=== PATIENT | male | born 1950 | race Caucasian/White ===

== ENCOUNTER 2021-05-26 22:13 | Observation (INO) | payer BC, MEDICARE, OTHER ==
[~2021-05-26] VITALS: Ht 177.8 cm; Wt 98.0 kg
[2021-05-26] MEDS ORDERED: ISOVUE-370 76% 100ML VIAL As Ordered ONE (22:18)
[2021-05-26 22:39] LABS: BASO % 0.4 % (0.0-1.0); EOS # 0.1 10^3/uL (0.0-0.5); EOS % 1.4 % (0.0-3.0); HEMATOCRIT 33.2 % (42.0-52.0); HEMOGLOBIN 10.5 g/dl (13.5-17.5); LYMPH # 1.5 10^3/uL (1.5-5.0); LYMPH % 14.6 % (24.0-44.0); MEAN CORPUSCULAR HEMOGLOBIN 29.8 pg (27.0-33.0); MEAN CORPUSCULAR HGB CONC 31.6 g/dl (32.0-36.5); MEAN CORPUSCULAR VOLUME 94.3 fl (80.0-96.0); NEUTROPHILS # 7.5 10^3/uL (1.5-8.5); PLATELET COUNT, AUTOMATED 195 10^3/uL (150-450); RED BLOOD COUNT 3.52 10^6/uL (4.30-6.10); WHITE BLOOD COUNT 10.2 10^3/uL (4.0-10.0)
[2021-05-26 22:51] LABS: INR 3.96; PROTHROMBIN TIME 38.9 SECONDS (12.7-14.5)
[2021-05-26 22:52] LABS: PARTIAL THROMBOPLASTIN TIME 38.2 SECONDS (25.9-37.0)
[2021-05-26 23:13] LABS: CK-MB VALUE MASS 2.3 NG/ML (<3.6); MB/CK RELATIVE INDEX 1.68 (< OR =4)
[2021-05-26 23:14] LABS: ALBUMIN 3.6 GM/DL (3.2-5.2); ALT/SGPT 56 U/L (12-78); BILIRUBIN,DIRECT < 0.1 MG/DL (0.0-0.2); BILIRUBIN,TOTAL 0.2 MG/DL (0.2-1.0); ETHYL ALCOHOL (ETHANOL) 0.003 % (0.000-0.010); LIPASE 114 U/L (73-393); TOTAL PROTEIN 6.6 GM/DL (6.4-8.2)
[2021-05-27] MEDS ORDERED: METO1TAB33 PO (01:35)
[2021-05-27] MEDS ORDERED: RAMI1CAP26 PO (01:35)
[2021-05-27] MEDS ORDERED: METF-838 PO (01:35)
[2021-05-27] MEDS ORDERED: AMLO1TAB25 PO (01:35)
[2021-05-27] MEDS ORDERED: PRAV10TA4 PO (01:35)
[2021-05-27] MEDS ORDERED: TERA10CA3 PO (01:35)
[2021-05-27] MEDS ORDERED: WARF-23 PO ×2 (01:35)
[2021-05-27] MEDS ORDERED: HOME MED LIST COMPLETE! XX SCH (01:40)
[2021-05-27 02:17] LABS: CK-MB VALUE MASS 2.3 NG/ML (<3.6)
[2021-05-27] MEDS ORDERED: MOM 30ML SUSPENSION UDC PO PRN (07:30)
[2021-05-27] MEDS ORDERED: ACETAMINOPHEN TAB 650MG DOSE (2X325MG) PO PRN (07:30)
[2021-05-27] MEDS ORDERED: TERAZOSIN 5MG CAPSULE PO SCH (09:00)
[2021-05-27] MEDS ORDERED: METOPROLOL SUCC (TopROL XL) 100MG *XL* TAB PO SCH (09:00)
[2021-05-27] MEDS: TAMSULOSIN 0.4 MG CAP PO SCH ×2 (09:00→20:47)
[2021-05-27 09:19] LABS: INR 3.57; PROTHROMBIN TIME 35.9 SECONDS (12.7-14.5)
[2021-05-27] MEDS: ramipriL 5 MG CAP PO SCH (09:39)
[2021-05-27] MEDS: PRAVASTATIN 10 MG TAB PO SCH (09:40)
[2021-05-27 11:10] VITALS: BP 137/54
[2021-05-27] MEDS ORDERED: GLUCAGON INJ 1MG VIAL SC PRN (11:50)
[2021-05-27] MEDS ORDERED: GLUCOSE 4GM CHEW TABLET PO PRN (11:50)
[2021-05-27] MEDS ORDERED: DEXTROSE 50% 50 ML SYRINGE IV PRN (11:50)
[2021-05-27] MEDS: HumaLOG INSULIN (NovoLOG) PER UNIT SC SCH ×3 (12:18→20:52)
[2021-05-27 14:00] VITALS: BP 136/57
[2021-05-27 15:33] VITALS: BP 156/65
[2021-05-27] MEDS: WARFARIN SOD 5MG TAB PO SCH (18:20)
[2021-05-27 20:16] VITALS: BP 133/66
[2021-05-27 21:00] VITALS: BP 144/71
[2021-05-28 00:12] VITALS: BP 145/67
[2021-05-28 04:30] VITALS: BP 133/63
[2021-05-28 05:41] LABS: HEMATOCRIT 33.4 % (42.0-52.0); HEMOGLOBIN 10.7 g/dl (13.5-17.5); MEAN CORPUSCULAR HEMOGLOBIN 29.8 pg (27.0-33.0); PLATELET COUNT, AUTOMATED 194 10^3/uL (150-450); RED BLOOD COUNT 3.59 10^6/uL (4.30-6.10)
[2021-05-28 06:04] LABS: INR 3.24; PROTHROMBIN TIME 33.4 SECONDS (12.7-14.5)
[2021-05-28 06:05] LABS: ALBUMIN 3.1 GM/DL (3.2-5.2); ALT/SGPT 37 U/L (12-78); BILIRUBIN,TOTAL 0.3 MG/DL (0.2-1.0); BLOOD UREA NITROGEN 20 MG/DL (7-18); CALCIUM LEVEL 8.3 MG/DL (8.8-10.2); CARBON DIOXIDE LEVEL 26 MEQ/L (21-32); CHLORIDE LEVEL 112 MEQ/L (98-107); CREATININE FOR GFR 1.11 MG/DL (0.70-1.30); GLOMERULAR FILTRATION RATE > 60.0 (>49); GLUCOSE, FASTING 126 MG/DL (70-100); MAGNESIUM LEVEL 1.7 MG/DL (1.8-2.4); POTASSIUM SERUM 4.1 MEQ/L (3.5-5.1); SODIUM LEVEL 144 MEQ/L (136-145)
[2021-05-28 07:57] VITALS: BP 138/71
[2021-05-28] MEDS: TAMSULOSIN 0.4 MG CAP PO SCH ×2 (08:09→22:03)
[2021-05-28] MEDS: HumaLOG INSULIN (NovoLOG) PER UNIT SC SCH ×4 (08:09→21:00)
[2021-05-28] MEDS ORDERED: MAG SULF 1GM/100ML (MAG RUN) 1 GM in IV 1 EA IV ONE (08:25)
[2021-05-28] MEDS ORDERED: PREVNAR 13 VACCINE SYRINGE IM ONE (09:00)
[2021-05-28] MEDS: ramipriL 5 MG CAP PO SCH (09:33)
[2021-05-28] MEDS: PRAVASTATIN 10 MG TAB PO SCH (09:33)
[2021-05-28 12:02] VITALS: BP 136/68
[2021-05-28 15:57] VITALS: BP 136/66
[2021-05-28] MEDS: WARFARIN SOD 5MG TAB PO SCH (16:58)
[2021-05-28 21:53] VITALS: BP 157/75
[2021-05-29 00:38] VITALS: BP 147/73
[2021-05-29 04:14] VITALS: BP 144/67
[2021-05-29 06:55] LABS: HEMATOCRIT 36.2 % (42.0-52.0); HEMOGLOBIN 11.6 g/dl (13.5-17.5); MEAN CORPUSCULAR HEMOGLOBIN 29.4 pg (27.0-33.0); MEAN CORPUSCULAR VOLUME 91.9 fl (80.0-96.0); PLATELET COUNT, AUTOMATED 198 10^3/uL (150-450); RED BLOOD COUNT 3.94 10^6/uL (4.30-6.10); WHITE BLOOD COUNT 7.2 10^3/uL (4.0-10.0)
[2021-05-29 07:23] LABS: ALBUMIN 3.3 GM/DL (3.2-5.2); ALT/SGPT 34 U/L (12-78); BILIRUBIN,TOTAL 0.4 MG/DL (0.2-1.0); BLOOD UREA NITROGEN 17 MG/DL (7-18); CALCIUM LEVEL 8.7 MG/DL (8.8-10.2); CARBON DIOXIDE LEVEL 29 MEQ/L (21-32); CHLORIDE LEVEL 108 MEQ/L (98-107); CREATININE FOR GFR 1.03 MG/DL (0.70-1.30); GLOMERULAR FILTRATION RATE > 60.0 (>49); GLUCOSE, FASTING 130 MG/DL (70-100); INR 3.22; MAGNESIUM LEVEL 1.7 MG/DL (1.8-2.4); POTASSIUM SERUM 4.3 MEQ/L (3.5-5.1); PROTHROMBIN TIME 33.2 SECONDS (12.7-14.5); SODIUM LEVEL 142 MEQ/L (136-145); TOTAL PROTEIN 6.4 GM/DL (6.4-8.2)
[2021-05-29 07:30] VITALS: BP 148/68
[2021-05-29] MEDS ORDERED: MAGNESIUM OXIDE 400MG TAB (MAG-OX) PO ONE (07:55)
[2021-05-29] MEDS ORDERED: FLOM0.4C39 PO (08:01)
[2021-05-29] MEDS: HumaLOG INSULIN (NovoLOG) PER UNIT SC SCH ×2 (08:59→12:42)
[2021-05-29] MEDS: PRAVASTATIN 10 MG TAB PO SCH (08:59)
[2021-05-29] MEDS: TAMSULOSIN 0.4 MG CAP PO SCH (08:59)
[2021-05-29] MEDS: ramipriL 5 MG CAP PO SCH (08:59)
[2021-05-29 09:00] VITALS: BP 148/68
[2021-05-30] MEDS ORDERED: WARFARIN SOD 2.5MG TAB PO SCH (17:00)
== END 2021-05-29 15:06 | disposition home or self-care (01) ==
LOC: M ED 22:13 → M ED INP 22:14 → ENRESERV 05-27 09:50 → M MSPAV 05-27 11:14 → M PCU 05-27 15:24
PROVIDERS: ADMIT Internal Medicine; ATTEND Internal Medicine
DX: R55 Syncope and collapse (principal); R00.1 Bradycardia, unspecified; I44.1 Atrioventricular block, second degree; I11.9 Hypertensive heart disease without heart failure; I25.10 Atherosclerotic heart disease of native coronary artery without angina pectoris; Z95.2 Presence of prosthetic heart valve; N17.9 Acute kidney failure, unspecified; N40.1 Benign prostatic hyperplasia with lower urinary tract symptoms; S00.83XA Contusion of other part of head, initial encounter; X58.XXXA Exposure to other specified factors, initial encounter; Y92.098 Other place in other non-institutional residence as the place of occurrence of the external cause; E11.9 Type 2 diabetes mellitus without complications; E78.5 Hyperlipidemia, unspecified; M19.90 Unspecified osteoarthritis, unspecified site; R10.9 Unspecified abdominal pain; K56.41 Fecal impaction; Z79.899 Other long term (current) drug therapy; Z79.84 Long term (current) use of oral hypoglycemic drugs; Z79.01 Long term (current) use of anticoagulants; Z98.84 Bariatric surgery status; Y93.9 Activity, unspecified
CPT/HCPCS: 36415; 51702; 70450; 71275; 74174; 80047; 80053; 80076; 81001; 82077; 82550; 82553; 83690; 83735; 84484; 85025; 85027; 85610; 85730; 86850; 86900; 86901; 87798; 90670; 93005; 93041; 93306; 97161; 99285; G0009; J1815; J3475; Q9967

== ENCOUNTER 2022-12-10 11:37 | Inpatient (IN) | payer BC, MEDICARE ==
[2022-12-10] VITALS (7 sets, daily range): BP systolic 134–147; BP diastolic 60–63; TEMP 98–98.3; O2SAT 96–100
[~2022-12-10 11:37] MED LIST: AMLO1TAB25 PO; FLOM0.4C39 PO; METF-838 PO; METO1TAB33 PO; PRAV10TA4 PO; RAMI1CAP26 PO; TERA10CA3 PO; WARF-23 PO
[2022-12-10] MEDS ORDERED: MAALOX 30 ML SUSP *UDC PO PRN (13:05)
[2022-12-10] MEDS ORDERED: MOM 30ML SUSPENSION UDC PO PRN (13:05)
[2022-12-10] MEDS ORDERED: ACETAMINOPHEN TAB 650MG DOSE (2X325MG) PO PRN (13:05)
[2022-12-10 13:52] LABS: ABG BASE EXCESS -4.5 (-2.0-2.0); ABG HCO3 19.4 MMOL/L (22.0-26.0); ABG O2 SATURATION 96.3 % (95.0-99.0); ABG PARTIAL PRESSURE CO2 31.4 mmHg (35.0-45.0); ABG PARTIAL PRESSURE O2 87.6 mmHg (75.0-100.0); ABG STANDARD HCO3 20.7 MMOL/L. (22.0-26.0); ABG TOTAL CO2 20.3 MMOL/L (23.0-31.0); ABG pH (ARTERIAL) 7.408 UNITS (7.350-7.450)
[2022-12-10 14:29] LABS: HEMATOCRIT 33.1 % (42.0-52.0); HEMOGLOBIN 9.3 g/dl (13.5-17.5); MEAN CORPUSCULAR HEMOGLOBIN 25.1 pg (27.0-33.0); MEAN CORPUSCULAR HGB CONC 28.1 g/dl (32.0-36.5); MEAN CORPUSCULAR VOLUME 89.5 fl (80.0-96.0); PLATELET COUNT, AUTOMATED 439 10^3/uL (150-450); WHITE BLOOD COUNT 8.4 10^3/uL (4.0-10.0)
[2022-12-10 14:52] LABS: ALBUMIN 2.7 G/DL (3.2-5.2); BILIRUBIN,TOTAL 0.4 MG/DL (0.3-1.2); CALCIUM LEVEL 8.5 MG/DL (8.3-10.6); CREATININE FOR GFR 1.43 MG/DL (0.70-1.30); GLOMERULAR FILTRATION RATE 51.9 (>42); MAGNESIUM LEVEL 1.7 MG/DL (1.8-2.4); POTASSIUM SERUM 4.6 MMOL/L (3.5-5.1); TOTAL PROTEIN 6.7 G/DL (5.7-8.2)
[2022-12-10] MEDS ORDERED: FUROSEMIDE 40MG/4ML VIAL IV STA (14:54)
[2022-12-10] MEDS ORDERED: DEXTROSE 50% 50ML SYRINGE IV PRN (15:00)
[2022-12-10] MEDS ORDERED: GLUCOSE 4GM CHEW TABLET PO PRN (15:00)
[2022-12-10] MEDS ORDERED: GLUCAGON INJ 1MG VIAL SC PRN (15:00)
[2022-12-10] MEDS ORDERED: LIDOCAINE 1% MDV 20ML VIAL As Ordered ONE (15:36)
[2022-12-10] MEDS ORDERED: ISOVUE-370 76% 100ML VIAL As Ordered ONE (15:39)
[2022-12-10] MEDS ORDERED: MAG SULF 1GM/100ML (MAG RUN) 1 GM in IV 1 EA IV ONE (16:00)
[2022-12-10] MEDS: INSULIN LISPRO (NovoLOG) PER UNIT SC SCH (17:30)
[2022-12-10] MEDS ORDERED: SODIUM CHLORIDE 0.9% INJ 10 ML SYR IV SCH (17:50)
[2022-12-10] MEDS ORDERED: SODIUM CHLORIDE 0.9% INJ 10 ML SYR IV PRN (17:50)
[2022-12-10 18:37] LABS: INR 2.42; PROTHROMBIN TIME 25.7 SECONDS (12.5-14.5)
[2022-12-10 18:38] LABS: PARTIAL THROMBOPLASTIN TIME 36.8 SECONDS (24.8-34.2)
[2022-12-10] MEDS ORDERED: WARFARIN SOD 5MG TAB PO SCH (20:00)
[2022-12-10] MEDS: FUROSEMIDE 40MG/4ML VIAL IV SCH (20:17)
[2022-12-10] MEDS ORDERED: INSULIN LISPRO (NovoLOG) PER UNIT SC SCH (21:00)
[2022-12-11 04:38] LABS: HEMATOCRIT 29.2 % (42.0-52.0); HEMOGLOBIN 8.3 g/dl (13.5-17.5); MEAN CORPUSCULAR HEMOGLOBIN 25.3 pg (27.0-33.0); MEAN CORPUSCULAR HGB CONC 28.4 g/dl (32.0-36.5); PLATELET COUNT, AUTOMATED 407 10^3/uL (150-450); RED BLOOD COUNT 3.28 10^6/uL (4.30-6.10); WHITE BLOOD COUNT 6.6 10^3/uL (4.0-10.0)
[2022-12-11 04:49] LABS: CALCIUM LEVEL 8.3 MG/DL (8.3-10.6); CREATININE FOR GFR 1.43 MG/DL (0.70-1.30); GLOMERULAR FILTRATION RATE 51.9 (>42); MAGNESIUM LEVEL 1.4 MG/DL (1.8-2.4); POTASSIUM SERUM 3.9 MMOL/L (3.5-5.1)
[2022-12-11 05:16] LABS: INR 2.49; PROTHROMBIN TIME 26.3 SECONDS (12.5-14.5)
[2022-12-11 06:00] VITALS: BP 140/64; TEMP 98.1; O2SAT 100
[2022-12-11 08:00] VITALS: BP 132/71; TEMP 98.4; O2SAT 98
[2022-12-11] MEDS: INSULIN LISPRO (NovoLOG) PER UNIT SC SCH (08:57)
[2022-12-11] MEDS: FUROSEMIDE 40MG/4ML VIAL IV SCH (08:58)
[2022-12-11] MEDS ORDERED: HEPARIN DRIP 25,000 UNITS in IV 1 EA IV SCH (09:00)
[2022-12-11 10:00] VITALS: BP 139/65; TEMP 98.3; O2SAT 96
[2022-12-11] MEDS ORDERED: JARD1TAB PO (10:02)
[2022-12-11] MEDS ORDERED: DICY20TA20 PO (10:02)
[2022-12-11] MEDS ORDERED: SPIR-10 PO (10:02)
[2022-12-11] MEDS ORDERED: FLOM0.4C39 PO (10:14)
[2022-12-11] MEDS ORDERED: HOME MED LIST COMPLETE! XX SCH (10:20)
== END 2022-12-11 10:59 | disposition short-term general hospital (02) | DRG 194 ==
LOC: M ICU 12:16
PROVIDERS: ADMIT Internal Medicine; ATTEND Internal Medicine
PROC: B246ZZZ Ultrasonography of Right and Left Heart (ICD-10-PCS; 2022-12-10)
PROC: 05HB33Z Insertion of Infusion Device into Right Basilic Vein, Percutaneous Approach (ICD-10-PCS; principal; 2022-12-10 16:00)
DX: I11.0 Hypertensive heart disease with heart failure (principal); N17.9 Acute kidney failure, unspecified; T82.09XA Other mechanical complication of heart valve prosthesis, initial encounter; I38 Endocarditis, valve unspecified; E83.42 Hypomagnesemia; I48.0 Paroxysmal atrial fibrillation; E11.9 Type 2 diabetes mellitus without complications; Z79.01 Long term (current) use of anticoagulants; Z95.2 Presence of prosthetic heart valve; I25.10 Atherosclerotic heart disease of native coronary artery without angina pectoris; E78.5 Hyperlipidemia, unspecified; R74.02 Elevation of levels of lactic acid dehydrogenase [LDH]; Z79.84 Long term (current) use of oral hypoglycemic drugs; Z95.0 Presence of cardiac pacemaker; Z98.84 Bariatric surgery status; Z90.49 Acquired absence of other specified parts of digestive tract; I50.23 Acute on chronic systolic (congestive) heart failure